=== PATIENT | female | born 1995 | race Two or more races ===

== ENCOUNTER → 2020-11-10 | Outpatient (REF) | payer OTHER, SELFPAY | LOC: M LAB REF 13:55 | PROVIDERS: ATTEND Otolaryngology | DX: H60.8X2 Other otitis externa, left ear (principal) ==

== ENCOUNTER 2020-12-09 11:48 | Day surgery (SDC) | payer OTHER, SELFPAY ==
[~2020-12-09] VITALS: Ht 152.4 cm; Wt 82.9 kg
[2020-12-09] MEDS ORDERED: dexameTHASONE 4 MG/ML 1ML VIAL (J1100 PER 1MG) As Ordered ONE (12:28)
[2020-12-09] MEDS ORDERED: KETOROLAC 60MG 2ML VIAL As Ordered ONE (12:28)
[2020-12-09] MEDS ORDERED: ONDANSETRON 4MG/2ML VIAL As Ordered ONE (12:28)
[2020-12-09] MEDS ORDERED: propofoL 200 MG/20 ML VIAL As Ordered ONE (12:28)
[2020-12-09] MEDS ORDERED: LIDOCAINE 2% 100MG/5ML SDV (FOR ANES.) As Ordered ONE ×2 (12:28→12:34)
[2020-12-09] MEDS ORDERED: MIDAZOLAM INJ 2MG/2ML VIAL (J2250 PER 1MG) As Ordered ONE (12:28)
[2020-12-09] MEDS ORDERED: fentaNYL 100 MCG/2 ML INJECTION (J3010) As Ordered ONE (12:28)
[2020-12-09] MEDS ORDERED: LIDOCAINE 5% OINT 30GM TUBE As Ordered ONE (12:37)
[2020-12-09] MEDS ORDERED: DOXYCYCLINE HYCLATE 100MG TABLET PO ONE (13:00)
--- NOTE | 2020-12-09 13:03 | ROOPDOC ---
[facility] Report Of Operation Report of Operation DATE OF PROCEDURE: 12/09/20 PREPROCEDURE DIAGNOSES: missed POSTPROCEDURE DIAGNOSES: missed PROCEDURE PERFORMED: ultrasound guided suction dilation and curettage SURGEON: Liam Miranda DO BOWLING BALL MARKER: n/a ANESTHESIA: LMA ESTIMATED BLOOD LOSS: Approximately 150 mL. COMPLICATIONS: none. REMARKS: none. FINDINGS: Initial ultrasound with empty gestational sac. Suction curettage performed. Ultrasound confirmed a thin endometrial stripe on completion. Her bleeding was scant. SPECIMENS REMOVED: products of conception PROCEDURE NOTE: The risks, benefits, and alternatives of the procedure were discussed and written consent obtained. The patient was taken to the OR where she underwent general anesthesia. She was positioned in lithotomy with her arms out. The vagina was prepped and draped in a sterile fashion. The bladder was drained. A final time out was performed. An abdominal ultrasound showed the uterus with an empty gestational sac. A speculum was placed in the vagina and the anterior lip of the cervix grasped with a single tooth tenaculum. The uterus was sounded to 10cm. The cervix was dilated to 20F with hanks dilators. A size 9 curette was introduced to the fundus easily. It was removed and the suction was tested to the green zone. Suction curettage was then performed x4 passes until no tissue return was visualized. A curette was passed gently noting 360 degree cry. An ultrasound revealed a thin endometrial stripe. The tenaculum was removed and the puncture sites hemostatic. The speculum was removed. The sponge, lap, and needle counts were correct x2. There were no complications. LIAM MIRANDA DO Dec 09, 2020 13:03
[2020-12-09 13:18] LABS: HEMATOCRIT 40.8 % (36.0-47.0); HEMOGLOBIN 14.3 g/dl (12.0-15.5); MEAN CORPUSCULAR HEMOGLOBIN 32.1 pg (27.0-33.0); MEAN CORPUSCULAR VOLUME 91.7 fl (80.0-96.0); PLATELET COUNT, AUTOMATED 268 10^3/uL (150-450); RED BLOOD COUNT 4.45 10^6/uL (4.00-5.40); WHITE BLOOD COUNT 8.2 10^3/uL (4.0-10.0)
[2020-12-09] MEDS ORDERED: SILVER NITRATE APPLICATOR As Ordered ONE (14:12)
--- NOTE | 2020-12-09 14:48 | POST-OPPD ---
Postoperative Procedure Note Date Of Procedure: Dec 09, 2020 DATE OF PROCEDURE: 12/09/20 PREPROCEDURE DIAGNOSES: missed POSTPROCEDURE DIAGNOSES: missed PROCEDURE PERFORMED: ultrasound guided suction dilation and curettage SURGEON: Liam Miranda DO [employer] AFFAIRS DIRECTOR: n/a ANESTHESIA: LMA ESTIMATED BLOOD LOSS: Approximately 150 mL. COMPLICATIONS: none. REMARKS: none. FINDINGS: Initial ultrasound with empty gestational sac. Suction curettage performed. Ultrasound confirmed a thin endometrial stripe on completion. Her bleeding was scant. SPECIMENS REMOVED: products of conception LIAM MIRANDA DO Dec 09, 2020 14:48
[2020-12-09] MEDS ORDERED: fentaNYL 100 MCG/2 ML INJECTION (J3010) IV PRN (15:15)
[2020-12-09] MEDS ORDERED: LR 1,000 ML IV SCH (15:15)
[2020-12-09] MEDS ORDERED: oxyCODONE 5MG TAB PO PRN (15:15)
[2020-12-09] MEDS ORDERED: ONDANSETRON 4MG/2ML VIAL IV PRN (15:15)
[2020-12-09 15:50] VITALS: BP 116/57
== END 2020-12-09 15:52 | disposition home or self-care (01) ==
LOC: M SDC 11:48
PROVIDERS: ATTEND Obstetrics & Gynecology
DX: O02.1 Missed abortion (principal)
CPT/HCPCS: 36415; 59820; 85027; 86850; 86900; 86901; 88305; J1100; J1885; J2250; J2405; J3010; U0002

== ENCOUNTER 2021-04-28 09:41 | Emergency (ER) | payer OTHER ==
[~2021-04-28] VITALS: Ht 152.4 cm; Wt 85.9 kg
[2021-04-28] MEDS ORDERED: ECOT81TA5 PO (09:52)
[2021-04-28] MEDS ORDERED: PROM50TA4 PO (09:52)
[2021-04-28] MEDS ORDERED: [UNRECOGNIZED DRUG - OTHER] PO (09:52)
[2021-04-28 11:08] LABS: BASO % 0.3 % (0.0-1.0); EOS % 0.4 % (0.0-3.0); HEMATOCRIT 39.8 % (36.0-47.0); HEMOGLOBIN 13.9 g/dl (12.0-15.5); LYMPH # 1.8 10^3/uL (1.5-5.0); LYMPH % 24.2 % (24.0-44.0); MEAN CORPUSCULAR HEMOGLOBIN 31.9 pg (27.0-33.0); MEAN CORPUSCULAR HGB CONC 34.9 g/dl (32.0-36.5); MEAN CORPUSCULAR VOLUME 91.3 fl (80.0-96.0); MONO # 0.5 10^3/uL (0.0-0.8); MONO % 6.5 % (2.0-8.0); NEUTROPHILS # 5.1 10^3/uL (1.5-8.5); NEUTROPHILS % 68.5 % (36.0-66.0); PLATELET COUNT, AUTOMATED 240 10^3/uL (150-450); RED BLOOD COUNT 4.36 10^6/uL (4.00-5.40); WHITE BLOOD COUNT 7.4 10^3/uL (4.0-10.0)
[2021-04-28 12:17] LABS: BLOOD UREA NITROGEN 6 MG/DL (7-18); CALCIUM LEVEL 9.4 MG/DL (8.5-10.1); CARBON DIOXIDE LEVEL 23 MEQ/L (21-32); CHLORIDE LEVEL 106 MEQ/L (98-107); GLOMERULAR FILTRATION RATE > 60.0 (>60); GLUCOSE, FASTING 94 MG/DL (70-100); HCG, SERUM QUANTITATIVE 128846 MIU/ML; POTASSIUM SERUM 3.8 MEQ/L (3.5-5.1); SODIUM LEVEL 138 MEQ/L (136-145)
[2021-04-28 14:24] VITALS: BP 122/68
== END 2021-04-28 14:26 | disposition home or self-care (01) ==
LOC: M ED 09:41
DX: O21.9 Vomiting of pregnancy, unspecified (principal); Z88.0 Allergy status to penicillin; Z91.048 Other nonmedicinal substance allergy status; Z3A.10 10 weeks gestation of pregnancy

== ENCOUNTER 2021-07-09 00:56 | Outpatient (CLI) | payer OTHER ==
[~2021-07-09] VITALS: Ht 152.4 cm; Wt 85.5 kg
[~2021-07-09 00:56] MED LIST: ECOT81TA5 PO; PROM50TA4 PO; [UNRECOGNIZED DRUG - OTHER] PO
[2021-07-09 01:19] VITALS: BP 118/62
[2021-07-09] MEDS ORDERED: TUMS500C PO (01:21)
[2021-07-09] MEDS ORDERED: PHEN-935 PO (01:21)
[2021-07-09 01:55] LABS: APPEARANCE, URINE HAZY (CLEAR); BACTERIA, URINE AUTO NEGATIVE (NEGATIVE); BILIRUBIN, URINE AUTO NEGATIVE (NEGATIVE); BLOOD, URINE BLOOD NEGATIVE (NEGATIVE); COLOR, URINE YELLOW (YELLOW); GLUCOSE, URINE (UA) AUTO NEGATIVE (NEGATIVE); KETONE, URINE AUTO NEGATIVE (NEGATIVE); LEUKOCYTE ESTERASE, URINE AUTO NEGATIVE (NEGATIVE); MUCUS, URINE SMALL (NEGATIVE); NITRITE, URINE AUTO NEGATIVE (NEGATIVE); PROTEIN, URINE AUTO 1+ mg/dL (NEGATIVE); RBC, URINE AUTO 1 /HPF (0-3); SPECIFIC GRAVITY URINE AUTO 1.024 (1.002-1.035); SQUAMOUS EPITHELIAL CELL UR AU 11 /HPF (0-6); UROBILINOGEN, URINE AUTO 0.2 mg/dL (0.0-2.0); WBC, URINE AUTO 2 /HPF (0-3)
== END 2021-07-09 02:20 | disposition home or self-care (01) ==
LOC: M LDO 00:56
PROVIDERS: ATTEND Obstetrics & Gynecology
DX: O26.892 Other specified pregnancy related conditions, second trimester (principal); R25.2 Cramp and spasm; O99.112 Other diseases of the blood and blood-forming organs and certain disorders involving the immune mechanism complicating pregnancy, second trimester; M79.7 Fibromyalgia; D68.61 Antiphospholipid syndrome; O99.212 Obesity complicating pregnancy, second trimester; E66.9 Obesity, unspecified; Z68.35 Body mass index [BMI] 35.0-35.9, adult; Z88.1 Allergy status to other antibiotic agents; Z88.0 Allergy status to penicillin; Z91.041 Radiographic dye allergy status; Z3A.20 20 weeks gestation of pregnancy
CPT/HCPCS: 59025; 81001; G0378; G0463